=== PATIENT | male | born 1995 | race Caucasian/White ===

== ENCOUNTER → 2025-01-31 14:53 | Outpatient (CLI) | payer OTHER, SELFPAY ==
--- NOTE | 2025-01-31 14:58 | DI.CT.S_ITS ---
PROCEDURE: CT WRIST RIGHT WITHOUT CON INDICATIONS: Right wrist fracture TECHNIQUE: Noncontrast 1 mm axial sections acquired through the carpal bones, with coronal and sagittal reformats. COMPARISON: None. FINDINGS: Image quality: Excellent. Bones: Comminuted and slightly impacted fracture involving distal radius is seen with fracture lines extending to radiocarpal joints. Minimal dorsal and medial displacement of the fractured fragments are seen. Slightly displaced fracture involving ulnar styloid tip is also noted. No other fracture or dislocation. No suspicious intraosseous lesions. No CT evidence of avascular necrosis. Soft tissues: Mild soft tissue swelling surrounding distal radial fracture site is seen. Small radiocarpal joint effusion is noted, no calcified intra-articular loose bodies. No full-thickness extensor or flexor tendon ruptures. No abnormal soft tissue calcifications. IMPRESSION: 1. Acute appearing comminuted and slightly displaced intra-articular fracture involving distal radius as above. Minimally displaced ulnar styloid tip fracture. No other fracture or dislocation. No suspicious bony lesions. 2. Soft tissue swelling surrounding distal radial fracture site. Small joint effusion without calcified intra-articular loose bodies. No full-thickness tendon rupture. Dictated by: Eric Figueredo M.D. on 02/01/2025 at 13:30 Approved by: Eric Figueredo M.D. on 02/01/2025 at 13:35
== END ==
LOC: CT 14:56
PROVIDERS: Referring Provider Student in an Organized Health Care Education/Training Program; Visit Provider Student in an Organized Health Care Education/Training Program
DX: S52.571A Other intraarticular fracture of lower end of right radius, initial encounter for closed fracture (principal); S52.614A Nondisplaced fracture of right ulna styloid process, initial encounter for closed fracture; M79.89 Other specified soft tissue disorders; M25.431 Effusion, right wrist; X58.XXXA Exposure to other specified factors, initial encounter
CPT/HCPCS: 73200